=== PATIENT | male | born 1935 | race Caucasian/White ===

== ENCOUNTER 2017-05-28 20:36 | Inpatient (IN) | payer OTHER, BC ==
[~2017-05-28] VITALS: Ht 165.1 cm; Wt 71.5 kg
[~2017-05-28 20:36] MED LIST: COLACE100 MG PO; FLOMAX0.4 MG PO; FOLIC ACID0.4 MG PO; NOHOMEMEDS; PAIN RELIEVER PO; PERCOCET 5/31 TABLET PO; ZOFRAN ODT4 MG PO; ZOFRAN4 MG PO
[2017-05-28 21:44] LABS: HEMATOCRIT 44.3 % (38.0-50.0); HEMOGLOBIN 13.8 G/DL (12.5-16.6); MCH 26.8 PG (29.0-34.0); MCHC 31.2 G/DL (30.0-36.0); MCV 86.2 FL (86-99); PLATELET COUNT 150 K/uL (156-360); RBC DIS.WIDTH-CV 14.4 % (11.8-14.6); RBC DIS.WIDTH-SD 45.4 % (39-53); RED BLOOD COUNT 5.14 M/uL (4.00-5.50); WHITE BLOOD COUNT 9.3 K/uL (4.1-10.2)
[2017-05-28 21:51] LABS: ALBUMIN 4.3 g/dL (3.2-4.8)
[2017-05-28 21:52] LABS: CHLORIDE 106 mEq/L (99-109); POTASSIUM 4.1 mEq/L (3.7-5.4); SODIUM 136 mEq/L (136-147)
[2017-05-28 21:54] LABS: GLUCOSE 154 mg/dL (70-99)
[2017-05-28 21:56] LABS: TOTAL BILIRUBIN 0.6 mg/dL (0.0-1.0)
[2017-05-28 21:57] LABS: ALKALINE PHOSPHATASE 81 IU/L (3-129)
[2017-05-28 21:58] LABS: CREATININE 0.9 mg/dL (0.6-1.3); GFR ESTIMATE (CALCULATED) > 59 mL/min/ (58.99-99999)
[2017-05-28 21:59] LABS: AST (GOT) 16 IU/L (2-34); UREA NITROGEN (BUN) 26 mg/dL (9-23)
[2017-05-28 22:01] LABS: ALT (GPT) 16 IU/L (3-49); LIPASE 25 U/L (1.0-51.0)
[2017-05-28 23:50] LABS: TROP-I INTERPRETATION NEGATIVE; TROPONIN-I < 0.01 ng/mL (0.0-0.30)
[2017-05-29] MEDS ORDERED: ATORVASTATIN CA10 MG PO (01:35)
[2017-05-29] MEDS ORDERED: LEVOTHYROXINE50 MCG PO (01:35)
[2017-05-29] MEDS ORDERED: LO-DOSE ASPIRIN81 M2 PO (01:37)
[2017-05-29] MEDS ORDERED: CYANOCOBALAM1000 MCG PO (01:38)
[2017-05-29] MEDS ORDERED: VITAMIN D2000 UNIT PO (01:38)
[2017-05-29] MEDS ORDERED: FOLIC ACID1 MG PO (01:39)
[2017-05-29 01:47] LABS: APPEARANCE SL.HAZY ((CLEAR)); BILIRUBIN NEGATIVE; BLOOD LARGE; COLOR YELLOW ((YELLOW)); GLUCOSE (STRIP) NEGATIVE; KETONES NEGATIVE; LEUKOCYTES NEGATIVE; NITRITE NEGATIVE; PROTEIN (STRIP) NEGATIVE; UROBILINOGEN 0.2 MG/DL (0.2-1.0)
[2017-05-29 01:53] LABS: BACTERIA NONE SEEN /HPF; EPITHELIAL CELLS RARE /HPF; HYALINE CASTS 0-5 /LPF; MUCUS 2+ /LPF; RED BLOOD CELLS TNTC /HPF (0-5); UCUL ADDED? YES; WHITE BLOOD CELLS 0-5 /HPF (0-5)
[2017-05-29 10:17] LABS: HEMATOCRIT 39.7 % (38.0-50.0); HEMOGLOBIN 12.4 G/DL (12.5-16.6); MCH 26.6 PG (29.0-34.0); MCHC 31.2 G/DL (30.0-36.0); MCV 85.2 FL (86-99); PLATELET COUNT 142 K/uL (156-360); RBC DIS.WIDTH-CV 14.5 % (11.8-14.6); RBC DIS.WIDTH-SD 44.1 % (39-53); RED BLOOD COUNT 4.66 M/uL (4.00-5.50); WHITE BLOOD COUNT 6.6 K/uL (4.1-10.2)
[2017-05-29 10:30] LABS: CHLORIDE 109 mEq/L (99-109); SODIUM 139 mEq/L (136-147)
[2017-05-29 10:32] LABS: GLUCOSE 129 mg/dL (70-99)
[2017-05-29 10:36] LABS: CREATININE 0.8 mg/dL (0.6-1.3); GFR ESTIMATE (CALCULATED) > 59 mL/min/ (58.99-99999); UREA NITROGEN (BUN) 22 mg/dL (9-23)
[2017-05-29 16:43] VITALS: BP 128/72
[2017-05-29 20:01] VITALS: BP 131/77
[2017-05-29 23:00] VITALS: BP 129/68
[2017-05-30 03:40] VITALS: BP 127/66
[2017-05-30 06:45] LABS: BASOPHIL (%) 0.4 % (0-1); EOSINOPHIL (%) 1.4 % (0-5); EOSINOPHIL COUNT 0.1 K/uL (0-0.3); HEMATOCRIT 40.7 % (38.0-50.0); HEMOGLOBIN 12.3 G/DL (12.5-16.6); LYMPHOCYTE (%) 16.3 % (15-42); LYMPHOCYTE COUNT 0.9 K/uL (1.0-2.8); MCH 25.9 PG (29.0-34.0); MCHC 30.2 G/DL (30.0-36.0); MCV 85.7 FL (86-99); MONOCYTE (%) 16.1 % (3-12); MONOCYTE COUNT 0.9 K/uL (0-0.8); NEUTROPHIL (%) 65.8 % (45-76); NEUTROPHIL COUNT 3.7 K/uL (1.8-6.4); PLATELET COUNT 135 K/uL (156-360); RBC DIS.WIDTH-CV 14.3 % (11.8-14.6); RBC DIS.WIDTH-SD 44.7 % (39-53); RED BLOOD COUNT 4.75 M/uL (4.00-5.50); WHITE BLOOD COUNT 5.6 K/uL (4.1-10.2)
[2017-05-30 07:20] VITALS: BP 119/71
[2017-05-30 07:21] LABS: CHLORIDE 105 MEQ/L (99-109); GFR ESTIMATE (CALCULATED) > 59 mL/min/ (58.99-99999); GLUCOSE 120 mg/dL (70-99); MAGNESIUM 1.8 mg/dl (1.3-2.7); POTASSIUM 4.3 MEQ/L (3.7-5.4); SODIUM 139 MEQ/L (136-147); UREA NITROGEN (BUN) 14 mg/dL (9-23)
[2017-05-30 11:20] VITALS: BP 117/73
[2017-05-30 15:55] VITALS: BP 152/80
[2017-05-30 20:45] VITALS: BP 112/63
[2017-05-31 00:10] VITALS: BP 110/67
[2017-05-31 03:46] VITALS: BP 107/61
[2017-05-31 06:26] LABS: HEMOGLOBIN 11.3 G/DL (12.5-16.6); MCH 26.5 PG (29.0-34.0); MCHC 30.5 G/DL (30.0-36.0); MCV 86.7 FL (86-99); PLATELET COUNT 129 K/uL (156-360); RBC DIS.WIDTH-CV 14.2 % (11.8-14.6); RBC DIS.WIDTH-SD 45.3 % (39-53); RED BLOOD COUNT 4.27 M/uL (4.00-5.50); WHITE BLOOD COUNT 6.6 K/uL (4.1-10.2)
[2017-05-31 07:02] LABS: CHLORIDE 109 MEQ/L (99-109); CREATININE 0.9 MG/DL (0.6-1.3); GFR ESTIMATE (CALCULATED) > 59 mL/min/ (58.99-99999); GLUCOSE 126 mg/dL (70-99); MAGNESIUM 1.8 mg/dl (1.3-2.7); PHOSPHORUS 2.7 mg/dL (2.5-4.9); POTASSIUM 4.5 MEQ/L (3.7-5.4); SODIUM 139 MEQ/L (136-147); UREA NITROGEN (BUN) 12 mg/dL (9-23)
[2017-05-31 07:26] VITALS: BP 103/58
[2017-05-31 10:38] VITALS: BP 116/63
[2017-05-31] MEDS ORDERED: COLACE100 MG PO (12:32)
[2017-05-31] MEDS ORDERED: ONDANSETRON HCL8 MG PO (12:33)
[2017-05-31] MEDS ORDERED: DILAUDID2 MG PO (12:34)
== END 2017-05-31 14:32 | disposition home or self-care (01) | DRG 337 ==
LOC: EME 20:36 → EXP 20:36 → EDOF 05-29 02:03 → 2EAST 05-29 02:03 → ENRESERV 05-29 02:04 → EDOF 05-29 04:35 → ENRESERV 05-29 14:38 → 2EAST 05-29 16:26 → ENRESERV 05-30 18:07 → 2EAST 05-30 18:07 → ENRESERV 05-30 18:41 → 4EAST 05-30 19:34
PROVIDERS: Nurse Practitioner Family; Surgery
PROC: 0DN84ZZ Release Small Intestine, Percutaneous Endoscopic Approach (ICD-10-PCS; principal; 2017-05-29)
DX: K56.52 Intestinal adhesions [bands] with complete obstruction (principal); E03.9 Hypothyroidism, unspecified; E78.00 Pure hypercholesterolemia, unspecified; N20.0 Calculus of kidney; Z85.46 Personal history of malignant neoplasm of prostate
CPT/HCPCS: 71045; 74177; 76705; 80048; 80053; 81003; 83605; 83690; 83735; 84100; 84484; 85025; 85027; 87086; 93005; 99281; 99285; J0131; J0330; J1100; J1170; J1644; J2370; J2405; J2710; J3010; J7040; S0020; S0028; S0074